=== PATIENT | female | born 1955 | race Caucasian/White ===

== ENCOUNTER 2018-02-27 16:57 | Emergency (ER) | payer BC ==
[~2018-02-27] VITALS: Ht 167.6 cm; Wt 58.3 kg
[~2018-02-27 16:57] MED LIST: ATIVAN0.5 MG PO; DUONEB 2.5-0.5 M3 ML AEROSOL; HYDROCHLOROTHIA25 MG PO; K-DUR10 MEQ PO; LEVAQUIN500 MG PO; PREDNISONE20 MG PO; TRIAMCINOLONE A15 GM TP; Tums,OsCal PO; VALIUM5 MG PO; ZESTRIL10 MG PO
[2018-02-27 17:52] LABS: HEMATOCRIT 39.6 % (36.0-46.0); HEMOGLOBIN 13.7 G/DL (11.9-15.5); MCH 32.6 PG (29.0-34.0); MCHC 34.6 G/DL (30.0-36.0); MCV 94.3 FL (83-99); PLATELET COUNT 81 K/uL (156-360); RBC DIS.WIDTH-CV 14.5 % (11.8-14.6); RBC DIS.WIDTH-SD 50.2 % (39-53); WHITE BLOOD COUNT 6.3 K/uL (4.1-10.2)
[2018-02-27 18:02] LABS: ALBUMIN 3.8 g/dL (3.2-4.8); CHLORIDE 93 mEq/L (99-109); SODIUM 138 mEq/L (136-147)
[2018-02-27 18:05] LABS: GLUCOSE 108 mg/dL (70-99); TOTAL PROTEIN 6.6 g/dL (6.4-8.3)
[2018-02-27 18:07] LABS: TOTAL BILIRUBIN 2.4 mg/dL (0.0-1.0)
[2018-02-27 18:08] LABS: ALKALINE PHOSPHATASE 82 IU/L (3-129); CREATININE 0.6 mg/dL (0.6-1.3); GFR ESTIMATE (CALCULATED) > 59 mL/min/; SERUM ETHYL ALCOHOL < 10 mg/dL
[2018-02-27 18:10] LABS: AST (GOT) 48 IU/L (2-34); POTASSIUM 2.3 mEq/L (3.7-5.4); UREA NITROGEN (BUN) 12 mg/dL (9-23)
[2018-02-27 18:11] LABS: ALT (GPT) 29 IU/L (3-49)
[2018-02-27 19:45] VITALS: BP 181/74
== END 2018-02-27 19:46 | disposition left against medical advice (07) ==
LOC: EME 16:57
PROVIDERS: Emergency Medicine
DX: E87.6 Hypokalemia (principal); F32.9 Major depressive disorder, single episode, unspecified; F10.20 Alcohol dependence, uncomplicated; I10 Essential (primary) hypertension; J44.9 Chronic obstructive pulmonary disease, unspecified; Z72.0 Tobacco use; Z87.442 Personal history of urinary calculi; Z90.49 Acquired absence of other specified parts of digestive tract; Z88.0 Allergy status to penicillin; Z88.1 Allergy status to other antibiotic agents
CPT/HCPCS: 80053; 81003; 85027; 90839; 93005; 99281; 99284; G0480